=== PATIENT | male | born 1970 | race Caucasian/White ===

== ENCOUNTER 2021-01-29 09:10 | Outpatient (CLI) | payer BC, SELFPAY ==
--- NOTE | ~2021-01-29 | XR_ITS ---
EXAMINATION: XR foot RT standing 2V INDICATION: Rheumatoid arthritis TECHNIQUE: Two views of the right foot are obtained. COMPARISON: None available FINDINGS: There is mild osteoarthritis at the first metatarsophalangeal joint and multiple interphala ngeal joints. No erosions are identified. The soft tissues are unremarkable. There is no fracture. A dorsal calcaneal enthesophyte is noted. IMPRESSION: 1. Osteoarthritis without acute osseous findings. Reviewed, dictated and finalized at location A.
--- NOTE | ~2021-01-29 | XR_ITS ---
EXAMINATION: XR hand BI arthritis min 3V DATE: 01/29/2021 09:36 INDICATION: Rheumatoid arthritis TECHNIQUE: Posteroanterior, lateral, and oblique views of the left and of the right hands as well as a ballcatchers view of both hands were obtained. COMPARISON: None. FINDINGS: Bone alignment is normal. There is no fracture. There is mild osteoarthritis of several interphalange al interphalangeal and metacarpophalangeal joints. The soft tissues are unremarkable. IMPRESSION: 1. Mild osteoarthritis. Reviewed, dictated and finalized at location A. IMPRESSION: 1. Mild osteoarthritis.
--- NOTE | ~2021-01-29 | XR_ITS ---
EXAMINATION: XR foot LT standing 2V INDICATION: Rheumatoid arthritis TECHNIQUE: Two views of the left foot are obtained. COMPARISON: None available FINDINGS: There is mild osteoarthritis at the first metatarsophalangeal joint and multiple interphala ngeal joints. No erosions are identified. The soft tissues are unremarkable. There is no fracture. Do rsal and plantar calcaneal enthesophytes are noted. IMPRESSION: 1. Osteoarthritis without acute osseous abnormality. Reviewed, dictated and finalized at location A.
== END 2021-01-29 09:11 | disposition home or self-care (01) ==
LOC: ANHIMG 09:18
PROVIDERS: PCP Internal Medicine; Visit Provider Internal Medicine
DX: M05.79 Rheumatoid arthritis with rheumatoid factor of multiple sites without organ or systems involvement (principal); M19.072 Primary osteoarthritis, left ankle and foot; M19.071 Primary osteoarthritis, right ankle and foot; M19.042 Primary osteoarthritis, left hand; M19.041 Primary osteoarthritis, right hand
CPT/HCPCS: 73130; 73620

== ENCOUNTER 2021-02-19 08:38 | Outpatient (CLI) | payer BC, SELFPAY ==
[2021-02-19 09:28] LABS: Hematocrit 44.2 % (42.0-52.0); Hemoglobin 15.5 g/dL (14.0-18.0); Mean Corpuscular HGB Conc 35.1 g/dl (32-36); Mean Corpuscular Hemoglobin 30.2 pg (26-34); Mean Platelet Volume 11.7 fl (7.4-10.4); Platelet Count Result 154 k/mm3 (150-375); Red Blood Count 5.14 M/mm3 (4.6-6.20); Red Cell Distribution Width 12.6 % (11.5-14.5); White Blood Count 5.3 K/mm3 (4.5-10.0)
[2021-02-19 09:45] LABS: Rheumatoid Factor < 8.6 IU/ML (<12)
[2021-02-19 09:47] LABS: Alanine Aminotransferase 70 U/L (4-50); Albumin Level 4.6 g/dL (3.5-5.1); Alkaline Phosphatase 78 U/L (38-126); Anion Gap 9 mmol/L (8-16); Aspartate Amino Transferase 61 U/L (17-59); Bilirubin,Total 0.6 mg/dL (0.2-1.3); Blood Urea Nitrogen 12 mg/dL (9-20); CRP 0.6 mg/dL (<1.0); Calcium 9.4 mg/dL (8.4-10.2); Carbon Dioxide 28 mmol/L (22-30); Chloride 104 mmol/L (98-107); Estimated Glomerular Filt Rate > 60; Glucose 104 mg/dL (75-110); Potassium 4.7 mmol/L (3.4-5.0); Sodium 141 mmol/L (137-145)
[2021-02-19 10:21] LABS: Erythrocyte Sedimentation Rate 19 mm/hr (0-20)
[2021-02-19 10:40] LABS: Hepatitis B Surface Antigen Negative (Negative)
[2021-02-19 10:57] LABS: Hepatitis B Surface Anti Res Negative; Hepatitis C Virus Antibody Negative (Negative)
[2021-02-23 09:28] LABS: Anti Cyclic Citrullinated Pept <16 Units (<20)
== END 2021-02-19 08:39 | disposition home or self-care (01) ==
LOC: ANHLAB 08:41
PROVIDERS: PCP Internal Medicine; Visit Provider Internal Medicine
DX: M05.79 Rheumatoid arthritis with rheumatoid factor of multiple sites without organ or systems involvement (principal); M19.90 Unspecified osteoarthritis, unspecified site
CPT/HCPCS: 36415; 80053; 85027; 85652; 86038; 86140; 86200; 86430; 86480; 86706; 86803; 87340

== ENCOUNTER 2021-08-10 19:24 | Emergency (ER) | payer BC, SELFPAY ==
--- NOTE | ~2021-08-10 | CT_ITS ---
EXAMINATION: CT abdomen pelvis w con INDICATION: Right lower quadrant pain TECHNIQUE: Computed tomographic images of the abdomen and pelvis were obtained after the administrati on of 100 cc of Omnipaque 350 intravenous contrast. The dose-length product (DLP) was 823.40 mGy-cm. Automated exposure control and iterative reconstruction technique were employed. COMPARISON: None available FINDINGS: The lung bases are clear. The heart size is normal. The liver is diffusely low in attenuati on when compared with the spleen, consistent with hepatic steatosis. The spleen, pancreas, gallbladde r, and adrenal glands are normal. The kidneys are unremarkable. The appendix is normal. No pathologic ally enlarged abdominal or pelvic lymph nodes are identified. There is no free intraperitoneal gas or evidence of bowel obstruction. There are bilateral L5 pars defects with grade 1 anterolisthesis of L 5 on S1. IMPRESSION: 1. No CT correlate for the patient's symptoms. 2. Diffuse hepatic steatosis. Reviewed, dictated and finalized at location F. PATIONAL PSYCHOLOGIST
[2021-08-10 19:50] VITALS: BP 150/100; PULSE 84; RESP 18; TEMP 36.1; O2SAT 99
[2021-08-10 21:45] VITALS: BP 141/90; PULSE 96; TEMP 36.8; O2SAT 100
[2021-08-10 22:10] LABS: Basophils Absolute Auto 0.1 K/mm3 (0.0-0.1); Basophils Percent Auto 0.9 % (0.2-1.2); Eosinophils Absolute Auto 0.2 K/mm3 (0-0.3); Eosinophils Percent Auto 2.8 % (0-4.4); Hematocrit 43.1 % (42.0-52.0); Hemoglobin 15.3 g/dL (14.0-18.0); Immature Granulocyte Absolute 0.04 K/mm3 (0.00-0.031); Immature Granulocyte Percent A 0.5 % (0-0.5); Lymphocytes Percent Auto 42.5 % (18.3-44.2); Mean Corpuscular HGB Conc 35.5 g/dl (32-36); Mean Corpuscular Hemoglobin 30.5 pg (26-34); Mean Corpuscular Volume 85.9 fl (80-100); Mean Platelet Volume 11.1 fl (7.4-10.4); Monocytes Absolute Auto 0.6 K/mm3 (0.1-0.6); Monocytes Percent Auto 7.9 % (2.6-8.5); Neutrophils Absolute Auto 3.6 K/mm3 (1.3-6.7); Neutrophils Percent Auto 45.4 % (45.5-73.1); Platelet Count Result 148 k/mm3 (150-375); Red Blood Count 5.02 M/mm3 (4.6-6.20); Red Cell Distribution Width 12.5 % (11.5-14.5)
[2021-08-10] MEDS: SODIUM CHLORIDE 0.9% IV 1,000 ML 999 ML IV CONT (22:15)
[2021-08-10] MEDS: ONDANSETRON INJ 4 MG/2 ML VIAL IV PUSH (22:15)
[2021-08-10] MEDS: MORPHINE SULFATE (*CRX) 4 MG/ML INJ IV PUSH (22:16)
--- NOTE | 2021-08-10 22:24 | PC.NURSE ---
Pt given meds for nausea and pain, moved to bed as c/o dizziness after morphine. Side rails up x2 and call light and urinal within reach. Pt instructed to call for assistance if needing to get up.
[2021-08-10 22:27] LABS: Alanine Aminotransferase 60 U/L (4-50); Albumin Level 4.6 g/dL (3.5-5.1); Alkaline Phosphatase 61 U/L (38-126); Anion Gap 10 mmol/L (8-16); Aspartate Amino Transferase 48 U/L (17-59); Bilirubin,Total 0.5 mg/dL (0.2-1.3); Blood Urea Nitrogen 16 mg/dL (9-20); CRP 0.8 mg/dL (<1.0); Calcium 9.7 mg/dL (8.4-10.2); Carbon Dioxide 25 mmol/L (22-30); Chloride 105 mmol/L (98-107); Estimated CRCL calculation 103 ml/min; Estimated Glomerular Filt Rate > 60; Glucose 108 mg/dL (65-110); Lipase 179 U/L (23-300); Potassium 3.9 mmol/L (3.4-5.0); Sodium 140 mmol/L (137-145)
[2021-08-10 22:28] LABS: Add Urine Microscopic? NO; Appearance Urine Clear (Clear); Bilirubin Urine Negative (Negative); Blood Urine Negative (Negative); Color Urine Yellow (Yellow); Glucose Urine UA Negative (Negative); Ketones Urine Negative (Negative); Leukocyte Esterase Ur Negative LEU/UL (Negative); Nitrate Urine Negative (Negative); Protein Urine Negative (Negative); Specific Grav Ur 1.015 (1.001-1.035); Urobilinogen Urine Negative mg/dL (<2.0)
--- NOTE | 2021-08-10 22:31 | ED.BACK ---
HPI - Back Pain/Injury General Chief Complaint: Back Pain/Injury Stated Complaint: Back Pain Time Seen by Provider: 08/10/21 21:34 Source: patient and RN notes reviewed Mode of arrival: ambulatory Limitations: no limitations History of Present Illness HPI Narrative: Patient is 51 years old white male presents with sharp pain across lumbar area, worse with movement, better at rest, start 4 days ago. 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 Patient denies any fever, chills, nausea, vomiting. Patient is not vaccinated for COVID. Patient does not smoke or uses drugs but drinks occasionally. Patient denies any history of abdominal pain. Patient dropped off by his . Related Data Home Medications Medication Instructions Recorded Confirmed gabapentin PO PRN 08/25/20 03/11/21 tramadol 50 mg tablet 50 mg PO Q6H 08/25/20 03/11/21 Allergies Allergy/AdvReac Type Severity Reaction Status Date / Time No Known Allergies Allergy Verified 08/10/21 21:35 Review of Systems Review of Systems: CONSTITUTIONAL: Denies fever, chills, or sweats. EYES: Denies visual changes, redness, or discharge. ENT: Denies rhinorrhea, congestion, sore throat, or otalgia. CARDIOVASCULAR: Denies chest pain, palpitations, or edema. RESPIRATORY: Denies cough or dyspnea. GASTROINTESTINAL: Denies abdominal pain, nausea, vomiting, or diarrhea. GENITOURINARY: Denies dysuria or hematuria. SKIN: Denies rash or itching. MUSCULOSKELETAL: Denies back pain, joint pain, or myalgia. NEUROLOGIC: Denies headache, numbness, or weakness. PSYCHIATRIC: Denies anxiety or depression. [facility] Past Medical History Medical History Rheumatoid arthritis with rheumatoid factor of multiple sites without organ or systems involvement (~2013) Surgical History Surgical History H/O thumb surgery Family History Family History Sibling Cervical cancer Father Cerebrovascular accident Social History Social History Smoking status: Never smoker Alcohol intake: current Alcohol use details: beer Substance use: never Substance use type: does not use Exam Narrative: General appearance: Well-developed, well-nourished Skin: Normal color Head: Normocephalic, nontraumatic Eyes: Clear conjunctiva ENT: Oropharynx normal, ears normal, nose normal Neck: Supple, nontender Chest and respiratory: Airway patent, no respiratory distress, no accessory muscle use Heart: Regular rate/rhythm Abdomen: Soft, mild diffuse tenderness right lower quadrant, no guarding or rebound, no organomegaly, quiet bowel sounds Vascular: Normal peripheral pulses, normal capillary refill. Musculoskeletal: Diffuse tenderness across lumbar area, no bruises, no rash, slight limited range of motion. Neurologic: Alert and oriented ?3, [employer] is normal as tested, no gross motor deficit Course Course Emergency Course: Stable Vital Signs Vital signs: Vital Signs Temperature 36.1 C L 08/10/21 19:50 Pulse Rate 84 08/10/21 19:50 Respiratory Rate 18 08/10/21 19:50 Blood Pressure 150/100 H 08/10/21 19:50 Pulse Oximetry 99 08/10/21 19:50 Temperature 36.8 C 08/10/21 21:45 Pulse Rate 96 08/10/21 21:45 Respiratory Rate 18 08/10/21 19:50 Blood Pressure 141/90 H 08/10/21 21:45 Pulse Oximetry 100 08/10/21 21:45 MDM - Back Pain/Injury MDM Narrative Medical decision making narrative: Musculoskeletal p
[2021-08-10 23:11] LABS: Erythrocyte Sedimentation Rate 13 mm/hr (0-20)
--- NOTE | 2021-08-10 23:19 | PC.NURSE ---
Pt awoke from sleep states does not think his pain is any better at this time. Made aware of awaiting plan of care.
== END 2021-08-11 00:19 | disposition home or self-care (01) ==
PROVIDERS: Emergency Provider Emergency Medicine; PCP Internal Medicine
DX: S39.012A Strain of muscle, fascia and tendon of lower back, initial encounter (principal); M05.79 Rheumatoid arthritis with rheumatoid factor of multiple sites without organ or systems involvement; K76.0 Fatty (change of) liver, not elsewhere classified; X58.XXXA Exposure to other specified factors, initial encounter
CPT/HCPCS: 36415; 74177; 80053; 81003; 83690; 85025; 85652; 86140; 96361; 96374; 96375; 99284; J2270; J2405; J7030; Q9967